=== PATIENT | female | born 1955 | race Caucasian/White ===

== ENCOUNTER 2018-11-11 09:29 | Inpatient (IN) | payer MEDICAID ==
[~2018-11-11] VITALS: Ht 160 cm; Wt 63.3 kg
[2018-11-11] MEDS ORDERED: IPRATROPIUM (NEB) 0.5 MG/2.5 ML AMP NEB STA (10:21)
[2018-11-11] MEDS ORDERED: METHYLPREDNISOLONE 125 MG INJ IV STA (10:21)
[2018-11-11] MEDS ORDERED: ALBUTEROL 0.083% (NEB) 2.5 MG/3 ML AMP NEB STA (10:21)
[2018-11-11] MEDS ORDERED: ACETAMINOPHEN 500 MG TAB PO STA (10:25)
[2018-11-11] MEDS ORDERED: SOD CHLORIDE 0.9% 1,000 ML IV STA (11:14)
[2018-11-11] MEDS ORDERED: CEFTRIAXONE 1 GM/50 ML (PMX) 50 ML IVPB ONE (11:30)
[2018-11-11] MEDS ORDERED: AZITHROMYCIN 500MG/NS (PMX) 250 ML IVPB ONE (11:30)
[2018-11-11] MEDS ORDERED: SOD CHLORIDE 0.9% 1,000 ML IV ONE (12:30)
--- NOTE | 2018-11-11 12:38 | ERD ---
ER Documentation Chief Complaint Chief Complaint FEVER COUGH X 1 WEEK HPI Patient is a 63-year-old female with a past medical history of gastritis, presents the ER for concerns of intermittent cough and fever last week. Patient reports low grade fevers. Patient states she has had a cough for the last week. Patient states initially the cough was dry however now has become productive. Patient reports occasional yellow-green sputum production. Patient states this morning she had 2 episodes of blood-tinged sputum. Patient does admit to generalized body aches. Patient states when coughing she does feel chest pain. At rest patient reports no pain. Patient denies any shortness of breath. Patient denies any nausea, vomiting, abdominal pain or diarrhea. Patient did recently travel to [place]. She states her symptoms started while she was in [place]. Patient denies any night sweats, weight loss. ROS All systems reviewed and are negative except as per history of present illness. Medications Home Meds Reported Medications Lorazepam* (Ativan*) 0.5 Mg Tablet, 0.5 MG PO HS PRN for ANXIETY, #30 TAB 11/11/18 Allergies Allergies: Coded Allergies: Penicillins (Verified Allergy, Intermediate, palpitations, 11/11/18) PMhx/Soc Medical and Surgical Hx: pt denies Medical Hx, pt denies Surgical Hx Hx Miscellaneous Medical Probl: Yes (gastritis) Hx Alcohol Use: No Hx Substance Use: No Hx Tobacco Use: No Smoking Status: Never smoker FmHx Family History: No diabetes Physical Exam Vitals Vital Signs Date Temp Pulse Resp B/P (MAP) Pulse Ox O2 O2 Flow FiO2 Time Delivery Rate 11/11/18 Nasal 2 12:38 Cannula 11/11/18 92 96 Nasal 2.0 12:37 Cannula 11/11/18 98.7 99 20 129/59 90 Room Air 12:35 (82) 11/11/18 87 18 94 21 10:55 11/11/18 100.0 10:32 11/11/18 100.0 84 16 145/87 94 09:31 (106) Physical Exam GENERAL: Well-developed female. Appears in no acute distress. Speaking in full sentences. Nontoxic in appearance. HEAD: Normocephalic, atraumatic. EYES: Pupils are equally reactive bilaterally. EOMs grossly intact. No conjunctival erythema. ENT: Moist mucous membranes. No uvula deviation. No kissing tonsils. NECK: Supple. No meningismus. Normal range of motion of the neck. LUNG: Expiratory wheezing in the left lower lung base. No abdominal retracti ons, nasal flaring, no tripoding. Actively coughing, appears productive in nature. HEART: Regular rate and rhythm. No murmurs, rubs or gallops. ABDOMEN: No scars, ecchymosis or rashes noted. Soft, nontender, and nondistended. Positive bowel sounds in all four quadrants. No rebound tenderness, no guarding. (-) McBurney's point tenderness. No CVA tenderness. EXTREMITIES: Equal pulses bilaterally. No peripheral clubbing, cyanosis or edema. No unilateral leg swelling. NEUROLOGIC: Alert and oriented. Moving all four extremities without any difficulty. Normal speech. Steady gait. SKIN: Normal color. Warm and dry. No rashes or lesions. Result Diagram: 11/11/18 1032 11/11/18 1032 Results 24 hrs Laboratory Tests Test 11/11/18 10:32 11/11/18 12:07 White Blood Count 3.6 10^3/ul Red Blood Count 4.61 10^6/ul Hemoglobin 13.5 g/dl Hematocrit 40.2 % Mean Corpuscular Volume 87.2 fl Mean Corpuscular Hemoglobin 29.3 pg Mean Corpuscular Hemoglobin Concent 33.6 g/dl Red Cell Distribution Width 13.2 % Platelet Count 120 10^3/UL Mean Platelet Volume 10.9 fl Immature Granulocytes % 0.300 % Neutrophils % % Segmented Neutrophils % (Manual) 58 % Band Neutrophils % (Manual) 3 % Lymphocytes % % Lymphocytes % (Manual) 35 % Reactive Lymphocytes % (Manual) 2 % Monocytes % % Monocytes % (Manual) 2 % Eosinophils % % Basophils % % Nucleated Red Blood Cells % 0.0 /100WBC Immature Granulocytes # 0.010 10^3/ul Neutrophils # 10^3/ul Neutrophils # (Manual) 2.1 10^3/ul Band Neutrophils # 0.1 10^3/ul Lymphocytes (Manual) 1.2 10^3/ul Lymphocytes # 10^3/ul Reactive Lymphocytes # 0.0 10^3/ul Monocytes # 10^3/ul Monocytes # (Manual) 0.0 10^3/ul Eosinophils # 10^3/ul Basophils # 10^3/ul Nucleated Red Blood Cells # 10^3/ul Platelet Estimate NORMAL Giant Platelets 1 % Platelet Morphology Comment @See below Anisocytosis 1+ Microcytosis 1+ Sodium Level 139 mmol/L Potassium Level 4.3 mmol/L Chloride Level 100 mmol/L Carbon Dioxide Level 30 mmol/L Anion Gap 9 Blood Urea Nitrogen 4 mg/dl Creatinine 0.52 mg/dl Est Glomerular Filtrat Rate mL/min > 60 mL/min Glucose Level 130 mg/dl Calcium Level 8.9 mg/dl Total Bilirubin 0.2 mg/dl Direct Bilirubin 0.00 mg/dl Indirect Bilirubin 0.2 mg/dl Aspartate Amino Transf (AST/SGOT) 136 IU/L Alanine Aminotransferase (ALT/SGPT) 74 IU/L Alkaline Phosphatase 75 IU/L Troponin I < 0.012 ng/ml Total Protein 6.7 g/dl Albumin 3.7 g/dl Globulin 3.00 g/dl Albumin/Globulin Ratio 1.23 POC Venous Lactate 2.1 mmol/L Current Medications Medications Dose Sig/Veronica Start Time Status Last (Trade) Ordered Route PRN Stop Time Admin Dose Reason Admin Albuterol 5 mg ONCE STAT 11/11/18 DC 11/11/18 (Proventil NEB 10:21 10:55 0.083% (Neb)) 11/11/18 10:25 Ipratropium 1 mg ONCE STAT 11/11/18 DC 11/11/18 [place] NEB 10:21 10:55 (Atrovent 11/11/18 10:25 0.02% (Neb)) 125 mg ONCE STAT 11/11/18 DC 11/11/18 Methylprednis IV 10:21 10:31 olone Sodium 11/11/18 10:25 Succinate (Solu-Medrol) 1,000 mg ONCE STAT 11/11/18 DC 11/11/18 Acetaminophen PO 10:25 10:32 (Tylenol 11/11/18 10:26 Tab) Sodium 1,000 ml @ Q1H STAT 11/11/18 DC 11/11/18 Chloride 1,000 mls/hr IV 11:14 11:25 11/11/18 12:13 Azithromycin 250 ml @ ONCE ONCE 11/11/18 DC 11/11/18 250 mls/hr IVPB 11:30 11:25 11/11/18 12:29 Ceftriaxone 50 ml @ ONCE ONCE 11/11/18 DC 11/11/18 Sodium 100 mls/hr IVPB 11:30 12:25 11/11/18 11:59 Sodium 1,000 ml @ Q1H ONCE 11/11/18 DC 11/11/18 Chloride 1,000 mls/hr IV 12:30 12:26 11/11/18 13:29 Procedures/MDM ED COURSE: The patient was stable throughout ED course. I kept the patient and/or family informed of laboratory and diagnostic imaging results throughout the ED course. EKG: Read by Dr. Amor, attending physician. EKG shows normal sinus rhythm with short OK at 76 bpm. No , acute ST elevations or T wave changes were noted. DIAGNOSTIC IMAGING: Read by radiologist. Patient: AXEL DAVE : 1955 Age: 63 Sex: F MR #: [id number] DOS: 11/11/18 1021 Ordering MD: BALBIR CHAPARRO PA-C Location: [facility] Room/Bed: PROCEDURE: XR Chest. CLINICAL INDICATION: Chest pain TECHNIQUE: Single frontal view of the chest was obtained. COMPARISON: None FINDINGS: The heart is within normal limits. The thoracic aorta is calcified. There is a mild left lower lobe infiltrate and small left pleural effusion. In addition there might be a mild patchy right lower lobe infiltrate. There is no pneumothorax. RPTAT: AA IMPRESSION: Mild left lower lobe infiltrate and small left pleural effusion. Possible mild patchy right lower lobe infiltrate. Calcified aorta consistent with atherosclerotic disease. .Ye David MD, MD Date Time Electronically viewed and signed by .Ye David MD, MD on 11/11/2018 10:50 .S/ CC: BALBIR CHAPARRO PA-C [id number] PROCEDURES: None. MEDICATIONS GIVEN: Solu-Medrol 125 IV, albuterol/ipratropium breathing treatment, Tylenol, 2 L of normal saline, azithromycin, ceftriaxone Patient tolerated medication well with no adverse reactions. MEDICAL DECISION MAKING: This is a 63-year-old female with history of gastritis presents the ER for concerns of fever and cough times 1 week. Patient states this morning she had 2 episodes of blood-tinged sputum. Patient did recently travel to [place] however she denies any significant weight loss or night sweats. Vital signs were reviewed. Patient was noted to have a low-grade temperature of 100 Fahrenheit at initial presentation. Patient's O2 sat was noted to be 94% however she had no signs of acute respiratory distress. Patient had no abdominal retractions, no nasal flaring, no tripoding. Pt was speaking in full sentences. Lung exam did reveal expiratory wheezing. Patient was given a breathing treatment of al buterol/ipratropium. IV line was established. Patient was given Solumedrol 125 mg IM and 1 L NS. Pa tient was given Tylenol 1g PO for low grade temperature. Blood work was obtained. CBC showed WBC count of 3.6, consistent with leukopenia, and platelet count of 120K, consistent with thrombocytopenia. Hemoglobin/hematocrit were within normal limits. CMP showed no evidence of severe electrolyte ab normalities, acidosis, alkalosis, renal injury. Patient's AST was noted to be elevated at 136, ALT was elevated at 74. EKG showed normal sinus rhythm with short OK. Reviewed by ED attending Dr. Anastacio chery. Troponin was negative. CXR showed Mild left lower lobe infiltrate and small left pleural effusion. Possible mild patchy right lower lobe infiltrate. Calcified aorta consistent with atherosclerotic disease. Case was originally discussed with supervising physician, Dr. Amor. Upon completion of breathing treatment, patient did report improvement in symptoms. Discussed admission vs discharge with patient. Plan was to discharge patient after giving patient first dose of antibiotics here. Patient was given Azithromycin and Ceftriaxone IV. Patient did report allergy to penicillin, however allergy was not a true allergy as patient stated that penicillin made her "feel communication skills instructor her chest." Initial POC lactate was noted to be 2.1. Once valve resulted, case was discussed with Dr. Guadarrama. He advised me give the patient a second L of IVF and reassess the patient's POC lactate level. After receiving 2L of IV fluids, patient was reassessed. Patient's O2 sat remained between 90-93%. Patient continued to display no abdominal retractions, no nasal flaring, no tripoding. Patient did not appear in respiratory distress. Patient was placed on 2L of O2 via nasal cannula and O2 sat improved. In addition, 2nd POC lactate remained at 2.1 after 2 L of NS. At that time, after patient had discussed findings with family, patient decided that did not wish to go home and wished to be admitted. Dr. Guadarrama was advised on patient's wishes to be admitted. He agreed that admission was appropriate. Dr. Guadarrama will assist with admitting patient to the appropriate team. Blood cultures were obtained once patient wished to stay. At this time, I doubt sepsis despite elevated lactate as patient was well appearing, in no signs of respiratory distress. Patient's presentation is most consistent with bilateral pneumonia, L sided pleural effusion, leukopenia, thrombocytopenia. DDX included but was not limited ACS, pericarditis, arrhythmia, septic shock, severe electrolyte abnormalities, D KA, PE, aortic dissection, TB, respiratory failure, CVA, TIA, acute abdomen. Patient was stable throughout ED course. Departure Diagnosis: Primary Impression: Pneumonia Pneumonia type: due to unspecified organism Laterality: bilateral Lung location: unspecified part of lung Qualified Codes: J18.9 - Pneumonia, unspecified organism Additional Impressions: Pleural effusion, left Leukopenia Leukopenia type: unspecified Qualified Codes: D72.819 - Decreased white blood cell count, unspecified Thrombocytopenia Condition: Serious BALBIR CHAPARRO PA-C Nov 11, 2018 12:38
[2018-11-11] MEDS ORDERED: IBUPROFEN 600 MG TAB PO PRN (14:30)
[2018-11-11] MEDS ORDERED: SODIUM CHLORIDE 0.9% 1L BAG IV SCH (14:30)
[2018-11-11] MEDS ORDERED: HYDROCODONE/APAP (5/325) TAB PO PRN (14:30)
[2018-11-11] MEDS ORDERED: BISACODYL 10 MG SUPP PR PRN (14:30)
[2018-11-11] MEDS ORDERED: morphine 2 MG INJ IV PRN (14:30)
[2018-11-11] MEDS ORDERED: NACL 0.9% 3 ML SYG IV SCH (14:30)
[2018-11-11] MEDS ORDERED: BISACODYL (EC) 5 MG TAB PO PRN (14:30)
[2018-11-11] MEDS ORDERED: ONDANSETRON 4 MG INJ IV PRN (14:30)
[2018-11-11] MEDS ORDERED: GUAIFENESIN/DM 5ML CUP PO PRN (14:30)
[2018-11-11] MEDS ORDERED: MAGNESIUM HYDROXIDE 30ML CUP PO PRN (14:30)
[2018-11-11] MEDS ORDERED: DOCUSATE SODIUM 100 MG CAP PO PRN (14:30)
[2018-11-11] MEDS ORDERED: ACETAMINOPHEN 325 MG TAB PO PRN (14:30)
[2018-11-11] MEDS: GUAIFENESIN LA 600 MG TABSR PO SCH ×2 (15:19→22:55)
[2018-11-11] MEDS: SOD CHLORIDE 0.9% 1,000 ML IV SCH ×3 (15:21→22:56)
[2018-11-11 19:06] VITALS: BP 124/61; PULSE 82; RESP 18
[2018-11-11 19:41] VITALS: Ht 160 cm; Wt 63.3 kg
[2018-11-11] MEDS ORDERED: LORA-441 PO (20:05)
[2018-11-11] MEDS: LORAZEPAM 0.5 MG TAB PO SCH (20:52)
[2018-11-11] MEDS: FAMOTIDINE 20 MG TAB PO SCH (20:52)
[2018-11-11] MEDS: ALBUTEROL 0.083% (NEB) 2.5 MG/3 ML AMP HHN PRN (20:57)
--- NOTE | 2018-11-11 23:13 | HP ---
Date/Time of Note Date/Time of Note DATE: 11/11/18 TIME: 23:07 Assessment/Plan VTE Prophylaxis Pharmacological prophylaxis: LMWH Lines/Catheters IV [facility] [place] Assessment/Plan Hospital Course Chief complaint Dyspnea History of present illness 63-year-old female who has had a shortness of breath since 1 week. Cough with white yellow expectoration. This is preceded by a runny nose sore throat cough headache. No history of flu shot. May have allergy to the flu vaccine. She h ad just returned from visiting her her mother. Her mother was not hospitalized. But she states other family members have been ill with a cough etc. In [place] there was concern about a gastroenteritis viral picture she went and visited a physician who prescribed naproxen and Keflex theophylline and albuterol and may be another antibiotic. However she did not take any of these medicines. 1 or 2 bouts of diarrhea without any GI bleed. She also had nausea vomiting and subjective fever. At present her symptoms are shortness of breath no more GI symptoms. She may have had one bout of hemoptysis. ER: Stable vital signs sinus rhythm Past medical history Gastritis? Gastroenteritis? In [place] last week line anxiety disorder on Xanax Past surgical history None Social history No active tobacco or alcohol Allergies Penicillin Flu shot Review of systems Neuro: No headache no loss speech or vision Cardiovascular: Positive chest pain dyspnea no edema Lungs: Fever cough dyspnea Abdomen: 1 or 2 episodes of nausea vomiting and diarrhea Genitourinary: No dysuria hematuria, possible fever Musculoskeletal: No gait dysfunction no rash no itching anemia Constitutional: Fever chills possible Reiger Endocrine: No history of diabetes dyslipidemia or thyroid dysfunction Psychiatry: Patient has a stable mood without any significant agitation anxiety depression Hematological: history of hematochezia melena hematuria possible hemoptysis Physical examination No pallor adenopathy JVD icterus Regular no murmur gallop Coarse breath sounds bilaterally mild tachypnea bowel sounds present nontender nondistended no RG No edema/Homans Assessment and plan 1. Pneumonia, atypical consider viral. Stable admit to MedSurg continue antibiotics e 2. Asthma? 3. Recent viral gastroenteritis? 4. Possible chronic gastritis 5. Chronic generalized anxiety disorder? Result Diagram: 11/11/18 1032 11/11/18 1032 Results 24hrs Laboratory Tests Test 11/11/18 10:32 11/11/18 12:07 11/11/18 14:12 11/11/18 16:55 White Blood Count 3.6 L Red Blood Count 4.61 Hemoglobin 13.5 Hematocrit 40.2 Mean Corpuscular 87.2 Volume Mean Corpuscular 29.3 Hemoglobin Mean Corpuscular 33.6 Hemoglobin Concent Red Cell 13.2 Distribution Width Platelet Count 120 L Mean Platelet Volume 10.9 H Immature 0.300 Granulocytes % Neutrophils % Segmented 58 Neutrophils % (Manual) Band Neutrophils % 3 (Manual) Lymphocytes % Lymphocytes % 35 (Manual) Reactive Lymphocytes 2 H % (Manual) Monocytes % Monocytes % (Manual) 2 Eosinophils % Basophils % Nucleated Red Blood 0.0 Cells % Immature 0.010 Granulocytes # Neutrophils # Neutrophils # 2.1 (Manual) Band Neutrophils # 0.1 Lymphocytes (Manual) 1.2 Lymphocytes # Reactive Lymphocytes 0.0 # Monocytes # Monocytes # (Manual) 0.0 L Eosinophils # Basophils # Nucleated Red Blood Cells # Platelet Estimate NORMAL Giant Platelets 1 H Platelet Morphology @See below Comment Anisocytosis 1+ Microcytosis 1+ Sodium Level 139 Potassium Level 4.3 Chloride Level 100 Carbon Dioxide Level 30 Anion Gap 9 Blood Urea Nitrogen 4 L Creatinine 0.52 Est Glomerular > 60 Filtrat Rate mL/min Glucose Level 130 Calcium Level 8.9 Total Bilirubin 0.2 Direct Bilirubin 0.00 Indirect Bilirubin 0.2 Aspartate Amino 136 H Transf (AST/SGOT) Alanine 74 H Aminotransferase (AL T/SGPT) Alkaline Phosphatase 75 Troponin I < 0.012 Total Protein 6.7 Albumin 3.7 Globulin 3.00 Albumin/Globulin 1.23 Ratio POC Venous Lactate 2.1 *H 2.1 *H 1.6 HPI/ROS Admit Date/Time Admit Date/Time Nov 11, 2018 at 13:31 PMH/Family/Social Past Medical History Medications Current Medications Sodium Chloride 1,000 ml @ 125 mls/hr Q8H IV Last administered on 11/11/18at 22:56; Admin Dose 125 MLS/HR; Start 11/11/18 at 14:15 IV Flush (NS 3 ml) 3 ml PER PROTOCOL IV ; Start 11/11/18 at 14:30 Ondansetron HCl (Zofran Inj) 4 mg Q6H PRN IV NAUSEA AND/OR VOMITING; Start 11/11/18 at 14:30 Acetaminophen (Tylenol Tab) 650 mg Q6H PRN PO PAIN LEVEL 1-3 OR FEVER Last administered on 11/11/18at 20:52; Admin Dose 650 MG; Start 11/11/18 at 14:30 Ibuprofen (Motrin) 600 mg Q6H PRN PO PAIN LEVEL 1-3; Start 11/11/18 at 14:30 Acetaminophen/ Hydrocodone Bitart ([place] (5/325)) 1 tab Q6H PRN PO MODERATE PAIN LEVEL 4-6; Start 11/11/18 at 14:30 Morphine Sulfate (morphine) 2 mg Q4H PRN IV SEVERE PAIN LEVEL 7-10; Start 11/11/18 at 14:30 Docusate Sodium (Colace) 100 mg Q12H PRN PO CONSTIPATION; Start 11/11/18 at 14:30 Magnesium Hydroxide (Milk Of Mag) 30 ml DAILY PRN PO CONSTIPATION; Start 11/11/18 at 14:30 Bisacodyl (Dulcolax) 5 mg DAILY PRN PO CONSTIPATION; Start 11/11/18 at 14:30 Bisacodyl (Dulcolax Supp) 10 mg DAILY PRN [place] CONSTIPATION; Start 11/11/18 at 14 :30 Famotidine (Pepcid) 20 mg Q12 PO Last administered on 11/11/18at 20:52; Admin Dose 20 MG; Start 11/11/18 at 21:00 Enoxaparin Sodium (Lovenox) 40 mg DAILY SC ; Start 11/12/18 at 09:00 Azithromycin (Zithromax) 500 mg DAILY PO ; Start 11/12/18 at 09:00 Albuterol (Proventil 0.083% (Neb)) 1.25 mg Q4H RESP THERAPY PRN HHN WHEEZING AND SOB Last administered on 11/11/18at 20:57; Admin Dose 1.25 MG; Start 11/11/18 at 14:30 Guaifenesin/ Dextromethorphan (Robitussin Dm Liquid Cup) 10 ml Q4H PRN PO COU GH; Start 11/11/18 at 14:30 Guaifenesin (Mucinex) 600 mg BID PO Last administered on 11/11/18at 22:55; Admin Dose 600 MG; Start 11/11/18 at 14:30 Ceftriaxone Sodium 50 ml @ 100 mls/hr Q24H IVPB ; Start 1/19/19 at 09:00 Lorazepam (Ativan) 0.5 mg HS PO Last administered on 11/11/18at 20:52; Admin Do se 0.5 MG; Start 11/11/18 at 21:00 Coded Allergies: Penicillins (Verified Allergy, Intermediate, palpitations, 11/11/18) Social History Smoking Status: Never smoker Exam/Review of Systems Vital Signs Vitals Vital Signs Date Temp Pulse Resp B/P (MAP) Pulse Ox O2 O2 Flow FiO2 Time Delivery Rate 11/11/18 2.0 21:02 11/11/18 92 20 97 Nasal 21:02 Cannula 11/11/18 98.1 124/61 19:06 (82) 11/11/18 21 10:55 JILLIAN VALVERDE MD Nov 11, 2018 23:13
[2018-11-11] MEDS: predniSONE 20 MG TAB PO SCH (23:36)
[2018-11-12] MEDS: SOD CHLORIDE 0.9% 1,000 ML IV SCH ×4 (00:47→16:12)
[2018-11-12] MEDS: ALBUTEROL 0.083% (NEB) 2.5 MG/3 ML AMP HHN PRN ×4 (01:08→22:25)
[2018-11-12 02:01] VITALS: BP 112/59; PULSE 95; RESP 20
[2018-11-12 07:44] VITALS: BP 134/67; PULSE 89; RESP 17
[2018-11-12] MEDS: ENOXAPARIN 40 MG/0.4 ML SYG SC SCH (08:34)
[2018-11-12] MEDS: FAMOTIDINE 20 MG TAB PO SCH ×2 (08:35→20:25)
[2018-11-12] MEDS: GUAIFENESIN LA 600 MG TABSR PO SCH ×2 (08:35→20:25)
[2018-11-12] MEDS: predniSONE 20 MG TAB PO SCH (08:35)
[2018-11-12] MEDS ORDERED: CEFTRIAXONE 2 GM INJ IVPB ONE (09:00)
[2018-11-12] MEDS: AZITHROMYCIN 250 MG TAB PO SCH (09:28)
[2018-11-12] MEDS: CEFTRIAXONE 2 GM/NS 50 ML IVPB SCH (09:28)
[2018-11-12 14:37] VITALS: BP 130/67; PULSE 87; RESP 15
--- NOTE | 2018-11-12 16:36 | PN ---
Date/Time of Note Date/Time of Note DATE: 11/12/18 TIME: 16:35 Assessment/Plan VTE Prophylaxis Risk score (from Ns)>0 risk: 3 SCD applied (from Ns): Yes SCD contraindicated: low risk/ambulating Pharmacological prophylaxis: LMWH Lines/Catheters IV [facility]from [facility] Peripheral IV Assessment/Plan Hospital Course Assessment and plan 1. Pneumonia, atypical consider viral. Stable continue antibiotics 2. Asthma? 3. Recent viral gastroenteritis? 4. Possible chronic gastritis 5. Chronic generalized anxiety disorder? 6. Head and neck ache probably due to the infection or pleurisy Subjective: Feels better has some back chest pain with coughing no diaphoresis nausea vomiting fever Objective: Vital signs stable Physical exam No pallor Regular Diminished occasionally coarse but better no warmth localized tenderness or rash Benign No edema Result Diagram: 11/12/18 0836 11/12/18 0836 Results 24hrs Laboratory Tests Test 11/11/18 16:55 11/12/18 08:36 POC Venous Lactate 1.6 White Blood Count 3.5 L Red Blood Count 3.95 L Hemoglobin 11.6 L Hematocrit 34.3 L Mean Corpuscular Volume 86.8 Mean Corpuscular Hemoglobin 29.4 Mean Corpuscular Hemoglobin Concent 33.8 Red Cell Distribution Width 13.2 Platelet Count 117 L Mean Platelet Volume 10.8 H Immature Granulocytes % 0.600 H Neutrophils % 73.1 Segmented Neutrophils % (Manual) 78 H Band Neutrophils % (Manual) 7 H Lymphocytes % 20.9 Lymphocytes % (Manual) 12 L Reactive Lymphocytes % (Manual) 2 H Monocytes % 5.1 Monocytes % (Manual) 1 Eosinophils % 0.0 Basophils % 0.3 Nucleated Red Blood Cells % 0.0 Immature Granulocytes # 0.020 Neutrophils # 2.6 Neutrophils # (Manual) 2.7 Band Neutrophils # 0.2 Lymphocytes (Manual) 0.4 L Lymphocytes # 0.7 L Reactive Lymphocytes # 0.0 Monocytes # 0.2 L Monocytes # (Manual) 0.0 L Eosinophils # 0.0 Basophils # 0.0 Nucleated Red Blood Cells # 0.0 Platelet Estimate DECREASED Giant Platelets 1 H Polychromasia 1+ Poikilocytosis 1+ Sodium Level 138 Potassium Level 3.7 Chloride Level 109 Carbon Dioxide Level 26 Anion Gap 3 L Blood Urea Nitrogen 6 L Creatinine 0.40 L Est Glomerular Filtrat Rate mL/min > 60 Glucose Level 171 Hemoglobin A1c 6.2 H Calcium Level 8.4 Phosphorus Level 2.5 Magnesium Level 1.9 Total Bilirubin 0.1 L Direct Bilirubin 0.00 Indirect Bilirubin 0.1 Aspartate Amino Transf (AST/SGOT) 183 H Alanine Aminotransferase (ALT/SGPT) 128 H Alkaline Phosphatase 60 Troponin I < 0.012 Total Protein 5.6 #L Albumin 3.0 L Globulin 2.60 Albumin/Globulin Ratio 1.15 Thyroid Stimulating Hormone (TSH) 0.199 L Exam/Review of Systems Vital Signs Vitals Vital Signs Date Temp Pulse Resp B/P (MAP) Pulse Ox O2 O2 Flow FiO2 Time Delivery Rate 11/12/18 97.5 87 15 130/67 96 14:37 (88) 11/12/18 2.0 13:51 11/12/18 Nasal 09:38 Cannula 11/11/18 21 10:55 Intake and Output 11/11/18 11/11/18 11/12/18 1515:00 23:00 07:00 IntakeIntake Total 2300 ml 700 ml BalanceBalance 2300 ml 700 ml Medications Medications Current Medications Sodium Chloride 1,000 ml @ 125 mls/hr Q8H IV Last administered on 11/12/18at 16:12; Admin Dose 125 MLS/HR; Start 11/11/18 at 14:15 IV Flush (NS 3 ml) 3 ml PER PROTOCOL IV ; Start 11/11/18 at 14:30 Ondansetron HCl (Zofran Inj) 4 mg Q6H PRN IV NAUSEA AND/OR VOMITING; Start 11/11/18 at 14:30 Acetaminophen (Tylenol Tab) 650 mg Q6H PRN PO PAIN LEVEL 1-3 OR FEVER Last administered on 11/11/18at 20:52; Admin Dose 650 MG; Start 11/11/18 at 14:30 Ibuprofen (Motrin) 600 mg Q6H PRN PO PAIN LEVEL 1-3; Start 11/11/18 at 14:30 Acetaminophen/ Hydrocodone Bitart ([place] (5/325)) 1 tab Q6H PRN PO MODERATE PAIN LEVEL 4-6 Last administered on 11/12/18at 14:46; Admin Dose 1 TAB; Start 11/11/18 at 14:30 Morphine Sulfate (morphine) 2 mg Q4H PRN IV SEVERE PAIN LEVEL 7-10; Start 11/11/18 at 14:30 Docusate Sodium (Colace) 100 mg Q12H PRN PO CONSTIPATION; Start 11/11/18 at 14:30 Magnesium Hydroxide (Milk Of Mag) 30 ml DAILY PRN PO CONSTIPATION; Start 11/11/18 at 14:30 Bisacodyl (Dulcolax) 5 mg DAILY PRN PO CONSTIPATION; Start 11/11/18 at 14:30 Bisacodyl (Dulcolax Supp) 10 mg DAILY PRN [place] CONSTIPATION; Start 11/11/18 at 14:30 Famotidine (Pepcid) 20 mg Q12 PO Last administered on 11/12/18 08:35; Admin Dose 20 MG; Start 11/11/18 at 21:00 Enoxaparin Sodium (Lovenox) 40 mg DAILY SC Last administered on 11/12/18 08:34; Admin Dose 40 MG; Start 11/12/18 at 09:00 Azithromycin (Zithromax) 500 mg DAILY PO Last administered on 11/12/18 09:28; Admin Dose 500 MG; Start 11/12/18 at 09:00 Albuterol (Proventil 0.083% (Neb)) 1.25 mg Q4H RESP THERAPY PRN HHN WHEEZING AND SOB Last administered on 11/12/18 16:33; Admin Dose 1.25 MG; Start 11/11/18 at 14:30 Guaifenesin/ Dextromethorphan (Robitussin Dm Liquid Cup) 10 ml Q4H PRN PO COUGH; Start 11/11/18 at 14:30 Guaifenesin (Mucinex) 600 mg BID PO Last administered on 11/12/18 08:35; Admin Dose 600 MG; Start 11/11/18 at 14:30 Ceftriaxone Sodium 50 ml @ 100 mls/hr Q24H IVPB Last administered on 11/12/18 09:28; Admin Dose 100 MLS/HR; Start 11/12/18 at 09:00 Lorazepam (Ativan) 0.5 mg HS PO Last administered on 11/11/18 20:52; Admin Dose 0.5 MG; Start 11/11/18 at 21:00 Prednisone (Prednisone) 60 mg DAILY PO Last administered on 11/12/18 08:35; Admin Dose 60 MG; Start 11/11/18 at 23:30 JILLIAN VALVERDE MD Nov 12, 2018 16:36
[2018-11-12 19:56] VITALS: BP 147/68; PULSE 89; RESP 18
[2018-11-12] MEDS: LORAZEPAM 0.5 MG TAB PO SCH (20:25)
[2018-11-13 02:24] VITALS: BP 132/77; PULSE 92; RESP 20
[2018-11-13 07:35] VITALS: BP 135/63; PULSE 68; RESP 18
[2018-11-13] MEDS: GUAIFENESIN LA 600 MG TABSR PO SCH (08:38)
[2018-11-13] MEDS: AZITHROMYCIN 250 MG TAB PO SCH (08:38)
[2018-11-13] MEDS: FAMOTIDINE 20 MG TAB PO SCH (08:38)
[2018-11-13] MEDS: predniSONE 20 MG TAB PO SCH (08:38)
[2018-11-13] MEDS: ENOXAPARIN 40 MG/0.4 ML SYG SC SCH (08:41)
--- NOTE | 2018-11-13 09:50 | PDOCDIS ---
Discharge Instructions CONDITION [id number] Patient Condition: [id number] Good HOME CARE INSTRUCTIONS: [id number] Diet Instructions: [id number] Regular ACTIVITY: [id number] Activity Restrictions: [id number] Slowly Increase Activity Do not Drive FOLLOW UP/APPOINTMENTS Follow-up Plan appt PCP JILLIAN Roman MD Nov 13, 2018 09:50
[2018-11-13] MEDS ORDERED: IBUP-1542 PO (09:52)
[2018-11-13] MEDS ORDERED: AZIT250T13 PO (09:52)
[2018-11-13] MEDS ORDERED: GUAI120S26 PO (09:52)
[2018-11-13] MEDS ORDERED: PRED20TA PO (09:52)
[2018-11-13] MEDS ORDERED: ALBU8.5H8 INH (09:53)
[2018-11-13] MEDS: CEFTRIAXONE 2 GM/NS 50 ML IVPB SCH (10:28)
[2018-11-13] MEDS: ALBUTEROL 0.083% (NEB) 2.5 MG/3 ML AMP HHN PRN (10:47)
--- NOTE | 2018-11-13 10:48 | DS ---
Date/Time of Note Date/Time of Note DATE: 11/13/18 TIME: 10:45 Discharge Summary Admission/Discharge Info Admit Date/Time Nov 11, 2018 at 13:31 Discharge Date/Time Patient Condition: Good Procedures CXR #2 COMPARISON: CHEST 11/11/2018 FINDINGS: There is new focal patchy infiltrate in the right upper lobe. Left lower lobe infiltrate or atelectasis is unchanged. Trace bilateral pleural effusions are present. . Calcific atherosclerosis of the aorta is present.. The cardiomediastinal silhouette is unremarkable. The osseous structures are intact. IMPRESSION: New focal right upper lobe infiltrate. Stable left lower lobe infiltrate or consolidation. Trace bilateral pleural effusions.. .Israel Corbett MD Hx of Present Illness 63-year-old female admitted with shortness of breath cough Hospital Course Hospital course -Evaluated & managed for pneumonia. Probably atypical. Stable and fit for discharge on azithromycin. Influenza testing negative. If she qualifies for home O2 this will be arranged. Medically oxygen is not needed if O2 sat is appropriate. Patient may pay out of pocket if she wears oxygen. Assessment and plan 1. Pneumonia, atypical consider viral. Stable continue antibiotics. Discharge 2. Asthma? 3. Recent viral gastroenteritis? 4. Possible chronic gastritis 5. Chronic generalized anxiety disorder? 6. Head and neck ache probably due to the infection or pleurisy Home Meds Active Scripts Albuterol Sulfate* (Proair HFA*) 8.5 Gm Hfa.aer.ad, 2 PUFF INH Q4H PRN for WHEEZING AND SOB, #1 INHALER 1 Refill Prov:JILLIAN VALVERDE MD 11/13/18 Fituoveemda-W-Znvaupjurh Hb* (Guaifenesin* DM Syrup) 120 Ml Syrup, 10 ML PO Q4H PRN for COUGH for 10 Days Prov:JILLIAN VALVERDE MD 11/13/18 Prednisone* (Prednisone*) 20 Mg Tab, 60 MG PO DAILY for 3 Days, #3 TAB Prov:JILLIAN VALVERDE MD 11/13/18 Ibuprofen* (Ibuprofen*) 600 Mg Tablet, 600 MG PO Q6H PRN for PAIN LEVEL 1-3 for 7 Days, TAB otc Prov:JILLIAN VALVERDE MD 11/13/18 Azithromycin* (Azithromycin*) 250 Mg Tablet, 500 MG PO DAILY for 5 Days, #5 TAB Prov:JILLIAN VALVERDE MD 11/13/18 Discontinued Reported Medications Lorazepam* (Ativan*) 0.5 Mg Tablet, 0.5 MG PO HS PRN for ANXIETY, #30 TAB 11/11/18 Follow-up Plan appt PCP 1wk Primary Care Provider Care Physician No Primary Time spent on discharge: > 30 minutes Pending Labs Laboratory Tests Test 11/13/18 06:42 White Blood Count 10.1 10^3/ul (4.8-10.8) Red Blood Count 3.77 10^6/ul (4.20-5.40) Hemoglobin 10.9 g/dl (12.0-16.0) Hematocrit 33.1 % (37.0-47.0) Mean Corpuscular Volume 87.8 fl (82.0-101.0) Mean Corpuscular Hemoglobin 28.9 pg (29.0-33.0) Mean Corpuscular Hemoglobin Concent 32.9 g/dl (32.0-37.0) Red Cell Distribution Width 13.5 % (11.5-14.5) Platelet Count 164 10^3/UL (140-415) Mean Platelet Volume 10.7 fl (7.4-10.4) Immature Granulocytes % 1.200 % (0.001-0.429) Neutrophils % 75.4 % (39.0-77.0) Lymphocytes % 16.4 % (15.0-51.0) Monocytes % 6.8 % (0.0-11.0) Eosinophils % 0.0 % (0.0-7.0) Basophils % 0.2 % (0.0-2.0) Nucleated Red Blood Cells % 0.0 /100WBC (0.0-0.0) Immature Granulocytes # 0.120 10^3/ul (0.0-0.031) Neutrophils # 7.6 10^3/ul (1.6-7.5) Lymphocytes # 1.7 10^3/ul (0.8-2.9) Monocytes # 0.7 10^3/ul (0.3-0.9) Eosinophils # 0.0 10^3/ul (0.0-0.5) Basophils # 0.0 10^3/ul (0.0-0.1) Nucleated Red Blood Cells # 0.0 10^3/ul (0.0-0.0) Sodium Level 140 mmol/L (135-144) Potassium Level 4.2 mmol/L (3.5-5.1) Chloride Level 110 mmol/L (97-110) Carbon Dioxide Level 25 mmol/L (21-31) Anion Gap 5 (5-13) Blood Urea Nitrogen 11 mg/dl (7-20) Creatinine 0.47 mg/dl (0.44-1.00) Est Glomerular Filtrat Rate mL/min > 60 mL/min (>60) Glucose Level 125 mg/dl (70-220) Calcium Level 8.5 mg/dl (8.4-10.2) JILLIAN VALVERDE MD Nov 13, 2018 10:48
[2018-11-13] MEDS ORDERED: morphine LIQ (10 MG/5 ML) CUP PO PRN (12:00)
== END 2018-11-13 12:20 | disposition home or self-care (01) | DRG 195 ==
LOC: FTE 09:29 → 5EC 13:31
PROVIDERS: ADMIT Hospitalist; ATTEND Internal Medicine
DX: J12.9 Viral pneumonia, unspecified (principal); J45.909 Unspecified asthma, uncomplicated; K29.50 Unspecified chronic gastritis without bleeding; F41.1 Generalized anxiety disorder; Z88.0 Allergy status to penicillin
CPT/HCPCS: 71045; 80048; 80053; 83036; 83605; 83735; 84100; 84443; 84484; 85025; 87040; 87400; 92610; 93005; 94640; 94664; 96365; 96366; 96368; 96375; J0456; J0696; J1650; J2930; J7030; J7512